=== PATIENT | male | born 1965 | race Asian ===

== ENCOUNTER 2017-03-10 20:15 | Emergency (ER) | payer OTHER ==
[~2017-03-10] VITALS: Ht 170.2 cm; Wt 81.8 kg
[2017-03-10 20:39] VITALS: BP 136/81
[2017-03-10] MEDS ORDERED: PERTUSS(ACELL),DIPH,TET VAC/PF 0.5 ML VIAL IM ONE (21:15)
== END 2017-03-10 21:43 | disposition home or self-care (01) ==
LOC: EMS 20:17
DX: S91.311A Laceration without foreign body, right foot, initial encounter (principal); W26.0XXA Contact with knife, initial encounter; Y93.89 Activity, other specified; Y92.89 Other specified places as the place of occurrence of the external cause; Y99.8 Other external cause status
CPT/HCPCS: 12001; 90471; 90715; 99283